=== PATIENT | male | born 1945 | race Caucasian/White ===

== ENCOUNTER 2020-10-22 00:33 | Inpatient (IN) | payer OTHER ==
[2020-10-22] MEDS ORDERED: DEXAMETHASONE INJ 10 MG/ML VIAL IV ONE (00:41)
[2020-10-22] MEDS ORDERED: AZITHROMYCIN IV 500 MG in SODIUM CHLORIDE 0.9% 250ML 250 ML IVPB ONE (00:42)
[2020-10-22] MEDS ORDERED: REMDESIVIR 200 MG in SODIUM CHLORIDE 0.9% 250ML 250 ML IVPB ONE (00:42)
--- NOTE | 2020-10-22 01:21 | RAD ---
EXAM: XR Chest, 1 View CLINICAL HISTORY: The patient is 75 years old and is Male; COVID, HYPOXIA TECHNIQUE: Frontal view of the chest. COMPARISON: No relevant prior studies available. FINDINGS: Lungs: Elevation of the left hemidiaphragm with a low lung volume. Patchy airspace opacities in the mid to lower right lung. Diffuse interstitial opacities suggestive of interstitial edema. Pleural space: Unremarkable. No pneumothorax. Heart: Unremarkable. Mediastinum: Unremarkable. Bones/joints: Unremarkable. IMPRESSION: 1. Elevation of the left hemidiaphragm with a low lung volume. 2. Patchy airspace opacities in the mid to lower right lung. 3. Diffuse interstitial opacities suggestive of interstitial edema. Electronically signed by: Lane Castle MD 10/22/2020 1:20 AM [facility] [[email or web address]]
[2020-10-22] MEDS ORDERED: cefTRIAXone SODIUM 1 GM in SODIUM CHL 0.9% 50ML MIN-BAG+ 50 ML IVPB ONE (01:35)
[2020-10-22] MEDS ORDERED: IPRATROPIUM/ALBUTEROL 3 ML VIAL NEB ONE (01:35)
[2020-10-22] MEDS ORDERED: ENOXAPARIN SODIUM 40 MG/0.4 ML SYG SUBCU ONE (01:39)
--- NOTE | 2020-10-22 01:44 | ED.PDOC ---
History of Present Illness - General Chief Complaint: Respiratory Problem Stated Complaint: SOB since today, COVID + Time Seen by Provider: 10/22/20 00:40 Source: patient Exam Limitations: no limitations - History of Present Illness Initial Comments: The patient is a 75-year-old male presented emergency room secondary to coronavirus pneumonia with worsening shortness of breath. The patient was diagnosed with coronavirus 4 days ago. He was started on azithromycin and steroids at that time. He reports of the last 24 hours he has become more short of breath. He does have a significant history of congestive heart failure and COPD. He does do frequent breathing treatments at home. Questionable fevers. No real sore throat and minimal runny nose. Minimal myalgias. I am told by his primary care doctor that he did receive a dose of the coronavirus vaccine. Apparently no monoclonal antibody however. The patient has been monitoring his oxygen levels at home with a pulse oximeter and had been getting numbers in the upper 80s. He reports his normal oxygen levels are between 91 and 95%. Timing/Duration: other - Around 5 days Severity: moderate Improving Factors: nothing Worsening Factors: nothing Associated Symptoms: cough, loss of appetite, malaise, shortness of breath Allergies/Adverse Reactions: Allergies Penicillins Allergy (Verified 10/22/20 01:08) Review of Systems - Review of Systems Constitutional: States: malaise EENTM: States: no symptoms reported Respiratory: States: cough, short of breath, wheezing Cardiology: States: no symptoms reported Gastrointestinal/Abdominal: States: no symptoms reported Genitourinary: States: no symptoms reported Musculoskeletal: States: no symptoms reported Skin: States: no symptoms reported Neurological: States: no symptoms reported Endocrine: States: no symptoms reported All other Systems: No Change from Baseline Past Medical History (General) - Patient Medical History Hx Seizures: No Hx Stroke: No Hx Dementia: No Hx Asthma: Yes Hx of COPD: Yes - 40% lung function Hx Cardiac Disorders: No Hx Congestive Heart Failure: Yes Hx Pacemaker: No Hx Hypertension: No Hx Thyroid Disease: No Hx Diabetes: No Hx Gastroesophageal Reflux: No Hx Renal Disease: No Hx Cancer: No Hx of HIV: No Hx Hepatitis C: No Hx MRSA: No Surgical History: cholecystectomy - Vaccination History Hx Influenza Vaccination: Yes Immunizations Comment: COVID vaccine 1st dose on Oct.08 - Social History Hx Alcohol Use: Yes - occasional Family Medical History - Family History Mother Family History: Unknown Physical Exam - Physical Exam General Appearance: Alert, Frail, Ill Appearing Eye Exam: bilateral normal Ears, Nose, Throat: hearing grossly normal, normal pharynx Neck: non-tender, supple Respiratory: accessory muscle use, rales, rhonchi, wheezing Cardiovascular/Chest: normal peripheral pulses, regular rate, rhythm - Borderline tachycardic, no edema Peripheral Pulses: radial,right: 2+, radial,left: 2+ Gastrointestinal/Abdominal: non tender, soft Rectal Exam: deferred Back Exam: no CVA tenderness, no vertebral tenderness Extremity: non-tender, normal inspection, no pedal edema, normal capillary refill Neurologic: rn perinatal II-XII nml as tested, alert, normal mood/affect, oriented x 3 Skin Exam: normal color Comments: Vital Signs - 8 hr 10/22/20 10/22/20 10/22/20 00:35 00:37 01:34 Temperature 98.1 F Pulse Rate [ 110 H 103 H monitor] Respiratory 24 24 18 Rate Blood Pressure 148/90 130/89 [Right Arm] O2 Sat by Pulse 85 L 94 L Oximetry Progress - Progress Progress: 10/22/20 01:46 The patient is a 75-year-old male with coronavirus pneumonia on top of his COPD. The patient is hypoxic and does require supplemental oxygen. He has been started on Rocephin, azithromycin, remdesivir, dexamethasone, DuoNeb's and is receiving prophylactic dose Lovenox. He will be admitted for continued care. Mortality is not insignificant with his background medical problems. america james 7 - Results/Orders Results/Orders: Chest x-ray shows scattered interstitial opacities. EKG shows sinus tachycardia 106 bpm. Normal axis. Normal QT interval. No ST segment or T wave changes indicative of acute ischemia Laboratory Tests 10/22/20 10/22/20 10/22/20 00:48 00:48 00:48 WBC 10.8 RBC 4.47 L Hgb 13.7 L Hct 39.7 L MCV 88.8 MCH 30.6 MCHC 34.4 RDW 12.6 Plt Count 234 MPV 7.1 L Absolute Neuts (auto) 10.00 H Absolute Lymphs (auto) 0.20 L Absolute Monos (auto) 0.60 Absolute Eos (auto) 0.00 Absolute Basos (auto) 0.00 Neutrophils % 92.4 H Lymphocytes % 1.7 L Monocytes % 5.9 Eosinophils % 0.0 L Basophils % 0.0 PT 9.4 INR < 1.00 PTT (SP) 23.4 D-Dimer, Quantitative 576.0 H Sodium 135 Potassium 3.5 L Chloride 101 Carbon Dioxide 25 Anion Gap 12.5 BUN 23 H Creatinine 0.74 BUN/Creatinine Ratio 31.1 H Random Glucose 138 H Serum Osmolality 276.0 Lactic Acid Calcium 8.6 Magnesium 1.9 Total Bilirubin 0.7 AST 33 ALT 44 Alkaline Phosphatase 42 LD Total 164 Creatine Kinase 40 CK-MB (CK-2) 1.5 CK-MB (CK-2) % Not Reportable Troponin I < 0.02 C-Reactive Protein 5.9 H B-Natriuretic Peptide 36.1 Serum Total Protein 6.8 Albumin 3.4 Globulin 3.4 Albumin/Globulin Ratio 1.0 L 10/22/20 00:48 WBC RBC Hgb Hct MCV MCH MCHC RDW Plt Count MPV Absolute Neuts (auto) Absolute Lymphs (auto) Absolute Monos (auto) Absolute Eos (auto) Absolute Basos (auto) Neutrophils % Lymphocytes % Monocytes % Eosinophils % Basophils % PT INR PTT (SP) D-Dimer, Quantitative Sodium Potassium Chloride Carbon Dioxide Anion Gap BUN Creatinine BUN/Creatinine Ratio Random Glucose Serum Osmolality Lactic Acid 2.5 H* Calcium Magnesium Total Bilirubin AST ALT Alkaline Phosphatase LD Total Creatine Kinase CK-MB (CK-2) CK-MB (CK-2) % Troponin I C-Reactive Protein B-Natriuretic Peptide Serum Total Protein Albumin Globulin Albumin/Globulin Ratio Departure - Departure Clinical Impression: Pneumonia due to COVID-19 virus, COPD with exacerbation Disposition: Admit Patient Departure Forms: ED Discharge - Pt. Copy, Patient Portal Self Enrollment Referrals: Robby James MD [Primary Care Provider] - 1-2 Weeks Decision To Admit - Decistion To Admit Decision to Admit Reason: Medical Nature Decision to Admit Date: 10/22/20 Decision to Admit Time: 01:47
--- NOTE | 2020-10-22 02:09 | HP ---
SUPERVISING PHYSICIAN: Alirio Lloyd M.D. CHIEF COMPLAINT: Shortness of breath, positive COVID. HISTORY OF PRESENT ILLNESS: Mr. Solis is a 75 year-old male patient that presented to the Emergency Room last night with a history of COVID pneumonia with some worsening shortness of breath. He was diagnosed previously 4 days ago with COVID pneumonia and was started on treatment with azithromycin and steroids. He does have a significant history of chronic obstructive pulmonary disease and congestive heart failure, and takes frequent breathing treatments at home. He had actually gotten a single dose of the coronavirus vaccine. He had been watching his O2 levels at home with a pulse oximetry noted that his SpO2 was reading in the mid 80s and in the last 24 hours were the last 2 to 3 days prior he had been reading in the mid 90s. His initial laboratory studies showed a white count of 10,800 with hemoglobin 13.7. His differential had a left shift. D-dimer was slightly elevated at 576. Chemistry showed a lactic acid of 2.5. Troponin was less than 0.2, BNP of 36. Initial vital signs in the Emergency Room showed that he was satting 85% on room air and he was not O2 dependent, and he was showing respirations of 24 with a heart rate initially of 110, but afebrile at 98.1. Blood pressure was 148/90. He was given breathing treatments and started on treatment for COVID pneumonia after chest x-ray showed patchy airspace opacities in the mid to lower right lung with diffuse interstitial opacities with some suggested interstitial edema. He is now going to be admitted for further treatment of COVID pneumonia. He was admitted in stable condition. PAST MEDICAL HISTORY: 1. Chronic obstructive pulmonary disease. 2. Congestive heart failure without current echocardiogram available at time of admission. PAST SURGICAL HISTORY: 1. Gallbladder. 2. Bilateral cataracts. HOME MEDICATIONS: 1. Flomax 0.4 mg. 2. Losartan 25 mg daily. 3. Finasteride 5 mg daily. 4. Pulmicort 0.5 mg nebulizers b.i.d. 5. Lipitor 80 mg at bedtime. 6. Proventil nebs 2.5 mg t.i.d. as needed. 7. Albuterol inhalers with a handheld inhaler 100 mcg q.i.d. 8. Spiriva handheld inhaler daily. ALLERGIES: PENICILLINS. FAMILY HISTORY: Noncontributory to current admission. SOCIAL HISTORY: The patient is a retired [employer] [address] [place]. He lives in [place], [place]. He is . He did smoke but quit at age 36. He has no history of alcohol or illicit drug use. REVIEW OF SYSTEMS: CONSTITUTIONAL: Just reported some general malaise. No fever or chills. HEENT: Denies any headaches vision changes, sore throat, nasal congestion or ear ache. RESPIRATORY: Increasing cough with shortness of breath and wheezing. CARDIOVASCULAR: Denies any chest pains, palpitations, syncopal episodes. GASTROINTESTINAL: Denies any nausea, vomiting, diarrhea, constipation or abdominal pain. GENITOURINARY: Denies any dysuria, hematuria, polyuria. MUSCULOSKELETAL: Denies any arthralgias or joint swelling. SKIN: Denies any unexplained lesions, rashes, moles or unexplained changes. NEUROLOGIC: Denies any ataxia, seizures, vision changes, syncopal episodes, headaches or other focal motor deficits. HEMATOLOGIC: Denies any unexplained bleeding, bruising or transfusion reactions. PHYSICAL EXAMINATION: VITAL SIGNS: Initially in the Emergency Room, temperature 98.1, pulse 110, blood pressure 148/90, respirations 24 showing 85% saturation on room air. After breathing treatment on admission, he improved on 3 liters nasal cannula up to 97%. GENERAL: The patient looks to be resting comfortably. He is not showing any obvious signs of distress. He is alert. He does look ill. He does have some pursed lip breathing at times which he says is sometimes his normal, especially when he is lying on his back. HEENT: Tympanic membranes clear bilaterally. Oropharynx is pink, moist without any lesions. NECK: Supple, nontender with full range of motion. No jugular venous distention. CHEST: Lung sounds are a little diminished towards the bases with some pursed lip breathing and some notable inspiratory/expiratory wheezing with increased rhonchi. No obvious rales. HEART: Regular rate and rhythm. Showing mildly tachycardic on the bedside monitor. EXTREMITIES: Without any clubbing, cyanosis or edema. ABDOMEN: Non-tender, soft with positive bowel sounds. BACK: Without any CVA or vertebral tenderness. RECTAL: Exam was deferred. NEUROLOGIC: Cranial nerves II-XII are grossly intact. He is alert and oriented times three. SKIN: Warm, pink and dry. LABORATORY: White count 10,800, hemoglobin 13.7, hematocrit 39.7, platelet count 234,000. Differential does show a left shift. Coagulation studies showed normal PT and PTT. D-dimer is slightly elevated at 536. Chemistries are showing potassium 3.5, otherwise other electrolytes were normal. Carbon dioxide was 25, anion gap was normal. Creatinine was 0.74, lactic acid was slightly elevated at 2.5, calcium and magnesium are normal. Liver functions are all within normal limits. Troponin less than 0.02. BNP was normal at 36.1, TSH was low at 0.2. MICROBIOLOGY: Blood cultures are pending. Influenza A and B by PCR was negative. He did test positive for COVID 4 days previously. RADIOLOGY: Chest x-ray per radiology interpretation showed an elevated left diaphragm with low lung volume with patchy airspace opacities in the mid to lower right lung with diffuse interstitial opacities suggesting interstitial edema. ASSESSMENT: 1. COVID pneumonia. 2. Acute exacerbation of chronic obstructive pulmonary disease secondary to #1. 3. Sepsis secondary to #1 with the patient showing a lactic acidosis, left shift, tachycardic. 4. Hypoxic respiratory failure secondary to #1. 5. Hypertension. 6. Congestive heart failure with no signs of exacerbation and no current echocardiogram available at time of admission. PLAN: Mr. Solis is going to be admitted for initiation of treatment of COVID pneumonia. He will be started on azithromycin and Rocephin. Given her advanced COPD, he will be in a negative pressure room. Will go ahead and start him on breathing treatments to continue with Albuterol and Pulmicort. He is on Decadron, Remdesivir, Protonix, Align. Will resume his home medications once those have been updated and verified. Will follow his labs per protocol. Will continue with aggressive pulmonary hygiene in efforts to titrate his oxygen down as tolerated. I will anticipate his length of stay to be at least 2 to 3 days until we can transition him to outpatient management. [facility][id number] [facility]
[2020-10-22] MEDS ORDERED: ONDANSETRON INJ 4 MG/2 ML VIAL IV PRN (05:25)
[2020-10-22] MEDS ORDERED: SODIUM CHLORIDE 0.9% (FLUSH) 10 ML SYG IV PRN (05:25)
[2020-10-22] MEDS: IV SET AND CAP CHANGE INJ INJ SCH (06:19)
[2020-10-22] MEDS ORDERED: PANTOPRAZOLE SODIUM IV 40 MG VIAL IV SCH (06:30)
[2020-10-22] MEDS: BIFIDOBACTERIUM INFANTIS 4 MG CAP PO SCH (07:44)
[2020-10-22] MEDS ORDERED: PROMETHAZINE W/CODEINE SYR 6.25 MG/10 MG/5 ML UD PO PRN (07:47)
[2020-10-22] MEDS ORDERED: BUDESONIDE NEBS 0.5 MG/2 ML INH NEB SCH (09:00)
[2020-10-22] MEDS: IPRATROPIUM/ALBUTEROL 3 ML VIAL INH SCH ×4 (09:35→21:23)
[2020-10-22] MEDS ORDERED: cefTRIAXone SODIUM 1 GM VIAL ONE (15:36)
[2020-10-22] MEDS ORDERED: SODIUM CHL 0.9% 50ML MIN-BAG+ 50 ML IVPB ONE (15:37)
[2020-10-22] MEDS: cefTRIAXone SODIUM 1 GM in SODIUM CHL 0.9% 50ML MIN-BAG+ 50 ML IVPB SCH (17:02)
[2020-10-22] MEDS: ALBUTEROL SULFATE 2.5 MG/3 ML VIAL NEB PRN (18:08)
[2020-10-22] MEDS: ATORVASTATIN 20 MG TAB PO SCH (20:37)
[2020-10-22] MEDS: LOSARTAN POTASSIUM 25 MG TAB PO SCH (20:38)
[2020-10-22] MEDS: TAMSULOSIN 0.4 MG CAP PO SCH (20:38)
[2020-10-22] MEDS: FINASTERIDE 5 MG TAB PO SCH (20:38)
[2020-10-22] MEDS: ENOXAPARIN SODIUM 40 MG/0.4 ML SYG SUBCU SCH (20:38)
[2020-10-22] MEDS: REMDESIVIR 100 MG in SODIUM CHLORIDE 0.9% 250ML 250 ML IVPB SCH (20:39)
[2020-10-22] MEDS: BUDESONIDE NEBS 0.5 MG/2 ML INH NEB SCH (21:23)
[2020-10-23] MEDS ORDERED: PANTOPRAZOLE SODIUM IV 40 MG VIAL ONE (03:55)
[2020-10-23] MEDS ORDERED: PANTOPRAZOLE SODIUM TAB 40 MG PO ONE (04:48)
[2020-10-23] MEDS: PANTOPRAZOLE SODIUM TAB 40 MG PO SCH (06:19)
--- NOTE | 2020-10-23 07:22 | RAD ---
EXAM: Chest 1 View 10/23/2020 at 6:59 AM HISTORY: copd ex ; COVID PNA COMPARISON: Chest 1 View AP 10/22/2020 TECHNIQUE: Chest 1 View AP FINDINGS: Patient's neck appears bilateral apices. Cardiac silhouette partially obscured by surrounding opacities. Heart size appears enlarged and may be partly due to portable AP technique. Marked large opacity of left mid/lower lung/chest again seen. Marked right mid/lower lung field dense opacity. No pneumothorax is grossly visualized. Diffuse decreased bone density. IMPRESSION: No significant change. 1. Cardiac silhouette partially obscured by surrounding opacities. Heart size appears enlarged and may be partly due to portable AP technique. 2. Marked large opacity of left mid/lower lung/chest again seen. This is likely at least partly due to marked left hemidiaphragm elevation. This may also represent underlying left atelectasis, consolidation, and/or pleural effusion. 3. Moderate dense right mid/lower lung field opacity. Causes include pulmonary edema, infection, scar/fibrosis. If clinically indicated, then CT chest may provide more information on the bilateral lungs/chest opacities. No old exam is available prior to 10/22/2020 at 12:52 AM. Electronically signed by: Billy Genao MD 10/23/2020 7:20 AM PRACTICING MD ANESTHESIOLOGIST
[2020-10-23] MEDS: DEXAMETHASONE INJ 10 MG/ML VIAL IV SCH (08:50)
[2020-10-23] MEDS: BIFIDOBACTERIUM INFANTIS 4 MG CAP PO SCH (08:51)
[2020-10-23] MEDS: IPRATROPIUM/ALBUTEROL 3 ML VIAL INH SCH ×4 (09:15→21:11)
[2020-10-23] MEDS: BUDESONIDE NEBS 0.5 MG/2 ML INH NEB SCH ×2 (09:15→21:11)
[2020-10-23] MEDS ORDERED: BUDESONIDE NEBS 0.5 MG/2 ML INH NEB ONE (09:16)
--- NOTE | 2020-10-23 13:14 | CT ---
Study: CT angiography of the chest, pulmonary embolus protocol. Indication: worsening COVID PNA. elevated d-dimer Technique: Axial CT images were acquired through the chest after intravenous administration of contrast utilizing the CT angiography, pulmonary embolus protocol. Computer-generated 3D reconstructions (MIPS) were performed and reviewed. This exam was performed according to our departmental dose-optimization program, which includes automated exposure control, adjustment of the mA and/or kV according to patient size and/or use of iterative reconstruction technique. Comparison: None Findings: Scattered atherosclerosis. Mild cardiomegaly with a tiny pericardial effusion. Marked respiratory motion artifact obscures the pulmonary arteries. No pulmonary embolus identified in the main pulmonary arteries. Distal evaluation cannot be performed. Significant elevation left hemidiaphragm with left basilar atelectasis versus scarring. Mild to moderate patchy groundglass opacities at the peripheral aspects of the bilateral lungs concerning for pneumonia. No pleural effusion or pneumothorax. Degenerative changes of the spine noted. Several hepatic cysts and bilateral renal cyst partially visualized. Impression: Markedly motion degraded examination making evaluation of the pulmonary arteries significantly limited. No pulmonary embolus within the main pulmonary arteries. More distal evaluation cannot be performed. Consider a follow-up when the patient can tolerate. Patchy groundglass opacities throughout the bilateral lungs concerning for pneumonia. COVID-19 could give this appearance. Marked elevation left hemidiaphragm. Additional findings as above. Electronically signed by: Raffi Levi MD 10/23/2020 1:12 PM [employer]CHOOL TEACHER'S ASSISTANT
[2020-10-23] MEDS: cefTRIAXone SODIUM 1 GM in SODIUM CHL 0.9% 50ML MIN-BAG+ 50 ML IVPB SCH (17:24)
[2020-10-23] MEDS: AZITHROMYCIN IV 500 MG in SODIUM CHLORIDE 0.9% 250ML 250 ML IVPB SCH (18:22)
[2020-10-23] MEDS: ENOXAPARIN SODIUM 40 MG/0.4 ML SYG SUBCU SCH (20:42)
[2020-10-23] MEDS: FINASTERIDE 5 MG TAB PO SCH (20:42)
[2020-10-23] MEDS: ATORVASTATIN 20 MG TAB PO SCH (20:42)
[2020-10-23] MEDS: LOSARTAN POTASSIUM 25 MG TAB PO SCH (20:42)
[2020-10-23] MEDS: TAMSULOSIN 0.4 MG CAP PO SCH (20:42)
[2020-10-23] MEDS: REMDESIVIR 100 MG in SODIUM CHLORIDE 0.9% 250ML 250 ML IVPB SCH (20:43)
--- NOTE | 2020-10-23 21:49 | PN ---
SUPERVISING PHYSICIAN: Alirio Lloyd M.D. DATE: 10/23/20 SUBJECTIVE: The patient is still increasing his need for oxygen, but he feels that he is not quite as short of breath as yesterday despite the increasing need for oxygen via nasal cannula. He actually looks like he feels pretty good. He has been afebrile. No chest pains. No nausea or vomiting. OBJECTIVE: VITAL SIGNS: Temperature 98.6, pulse 99, blood pressure 98/53, respirations 18, satting 91 to 94% on 10 liters nasal cannula at high flow. GENERAL: The patient looks to be resting comfortably. He is not showing any pursed lip breathing today, lying on his right side. CHEST: Lung sounds are fairly clear, just diminished towards the bases bilaterally. HEART: Regular rate and rhythm. ABDOMEN: Soft, non-tender. Positive bowel sounds. EXTREMITIES: No edema. NEUROLOGIC: He is alert and oriented times three. LABORATORY: White count 7,700, hemoglobin 11.8, hematocrit 35.0, platelet count 210,000. Differential does show a left shift. Coagulation studies are showing D-dimer is at 424. Chemistries showing sodium 138, potassium 3.4, otherwise other electrolytes were normal. Creatinine is 0.77, lactic acid normalized to 1.3. Liver functions are showing all within normal limits. MICROBIOLOGY: Blood cultures are negative at 24 [address]. RADIOLOGY: CT thoracic scan showed markedly motion degraded examination making evaluation of the pulmonary arteries significantly limited but no pulmonary embolus within the main artery system was noted. Patchy ground glass opacities throughout the bilateral lungs concerning for pneumonia at noted. COVID-19 could give this appearance. Marked elevation of the left diaphragm. ASSESSMENT: 1. COVID pneumonia. 2. Acute exacerbation of chronic obstructive pulmonary disease secondary to #1. 3. Sepsis secondary to #1 with the patient showing a lactic acidosis, left shift, tachycardic. 4. Hypoxic respiratory failure secondary to #1. 5. Hypertension. 6. Congestive heart failure with no signs of exacerbation and no current echocardiogram available at time of admission. PLAN: Will continue with current plan of care for COVID pneumonia. Will work to titrate his oxygen down as he is able to show improvement. Until then he remains on azithromycin, Rocephin, Remdesivir and Decadron, Pulmicort inhaled treatment along with DuoNeb. Will follow his labs as per protocol. Until we can transition to outpatient management will continue to monitor and treat as needed. #[id number] [facility]
[2020-10-24] MEDS: PANTOPRAZOLE SODIUM TAB 40 MG PO SCH (06:09)
--- NOTE | 2020-10-24 09:04 | RAD ---
EXAM DESCRIPTION: Chest,1 View CLINICAL HISTORY: 75 years Male, copd ex ; COVID PNA COMPARISON: Yesterday Findings: One view(s)/radiograph(s) Cardiac silhouette obscured. No pulmonary vascular congestion. No pneumothorax. Large left pleural effusion with adjacent airspace disease. Similar patchy multifocal bilateral airspace disease. Elevated left diaphragm. No acute osseous abnormality. IMPRESSION: Large left pleural effusion with adjacent airspace disease. Similar patchy multifocal bilateral airspace disease. Electronically signed by: Mac Palmer MD 10/24/2020 9:02 AM [facility]
[2020-10-24] MEDS: IPRATROPIUM/ALBUTEROL 3 ML VIAL INH SCH ×4 (09:10→21:27)
[2020-10-24] MEDS: BUDESONIDE NEBS 0.5 MG/2 ML INH NEB SCH ×2 (09:10→21:28)
[2020-10-24] MEDS: BIFIDOBACTERIUM INFANTIS 4 MG CAP PO SCH (09:12)
[2020-10-24] MEDS: DEXAMETHASONE INJ 10 MG/ML VIAL IV SCH (09:20)
[2020-10-24] MEDS: guaiFENesin ER TAB 600 MG TAB PO SCH ×2 (13:27→20:24)
[2020-10-24] MEDS: AZITHROMYCIN IV 500 MG in SODIUM CHLORIDE 0.9% 250ML 250 ML IVPB SCH (17:32)
[2020-10-24] MEDS: cefTRIAXone SODIUM 1 GM in SODIUM CHL 0.9% 50ML MIN-BAG+ 50 ML IVPB SCH (17:32)
--- NOTE | 2020-10-24 18:00 | PN ---
SUPERVISING PHYSICIAN: Alirio Lloyd M.D. DATE: 10/24/20 SUBJECTIVE: The patient is sitting up on the side of the bed. He continues complaints of shortness of breath. It was reported overnight by nursing that the patient took his own Methylprednisolone and had refused some of his medications. The patient and I discussed at length that he could not take his own medication and that all medications had to be able to be verified by the staff. We discussed the need for Mucinex as well as why we were using Decadron versus his Methylprednisolone and he voiced understanding. His O2 saturations were low the previous night and he has had some struggle. He felt that it was mostly his asthma acting up, but we discussed COVID and some of the current presentations. I also discussed with him that he may need to be placed on BiPAP if his oxygen requirements increased. OBJECTIVE: VITAL SIGNS: Temperature 96, heart rate 106, blood pressure 123/83, respiratory rate 20. It has been as high as 28, O2 saturation 91% on 15 liters high flow oxygen. RESPIRATORY: Diminished at the bases with a few scattered rhonchi and a few expiratory wheezes. CARDIAC: Regular rate and rhythm. At times he is tachycardic. NEUROLOGIC: He is awake, alert and oriented times three. LABORATORY: WBC is 7.1 with hemoglobin 11.2, hematocrit 34.6. He has a left shift on his differential. D-dimer is 398, fibrinogen 493. Electrolytes are within normal limits with the exception of his calcium is 8. Alkaline phosphatase 36, C reactive protein 6.3. Preliminary blood cultures show no growth after 48 hours. Chest x-ray shows large left pleural effusion with adjacent airspace disease. Similar patchy multifocal airspace disease. All other labs and films have been reviewed via the EMR. ASSESSMENT: 1. COVID-19 pneumonia. 2. Acute exacerbation of chronic obstructive pulmonary disease secondary to #1. 3. Sepsis secondary to #1 with the patient showing a lactic acidosis, left shift, tachycardic. 4. Hypoxic respiratory failure secondary to #1. 5. History of asthma with exacerbation secondary to #1. 6. Hypertension. 7. Congestive heart failure with no signs or symptoms of exacerbation, awaiting echocardiogram results. PLAN: We will continue present supportive care, including following COVID-19 guidelines. I have ordered Mucinex. The patient is aware that he may need BiPAP with his increasing oxygen demand. He will continue with the COVID-19 medications as ordered and aggressive pulmonary hygiene. #[id number] [facility]
[2020-10-24] MEDS: FINASTERIDE 5 MG TAB PO SCH (20:24)
[2020-10-24] MEDS: ATORVASTATIN 20 MG TAB PO SCH (20:24)
[2020-10-24] MEDS: LOSARTAN POTASSIUM 25 MG TAB PO SCH (20:24)
[2020-10-24] MEDS: ENOXAPARIN SODIUM 40 MG/0.4 ML SYG SUBCU SCH (20:25)
[2020-10-24] MEDS: TAMSULOSIN 0.4 MG CAP PO SCH (20:25)
[2020-10-24] MEDS: REMDESIVIR 100 MG in SODIUM CHLORIDE 0.9% 250ML 250 ML IVPB SCH (20:26)
[2020-10-25] MEDS: ALBUTEROL SULFATE 2.5 MG/3 ML VIAL NEB PRN ×3 (02:11→15:44)
[2020-10-25] MEDS: IV SET AND CAP CHANGE INJ INJ SCH (06:01)
[2020-10-25] MEDS: PANTOPRAZOLE SODIUM TAB 40 MG PO SCH (06:01)
--- NOTE | 2020-10-25 07:41 | RAD ---
EXAM DESCRIPTION: Chest,1 View CLINICAL HISTORY: copd ex ; COVID PNA COMPARISON: Chest x-ray October 24, 2020 FINDINGS: Frontal single view of the chest. Chronically elevated left hemidiaphragm dating back to 2013 consistent with left diaphragmatic paralysis/dysfunction. Multifocal bilateral groundglass opacities: Seen into consolidations commonly associated with atypical/viral pneumonia. Heart and mediastinum appear stable in appearance. No pneumothorax is demonstrated. No acute bony pathology. IMPRESSION: Stable chest. Electronically signed by: Rene Linares MD 10/25/2020 7:39 AM ELECTRICAL TECHNICIAN
[2020-10-25] MEDS: BIFIDOBACTERIUM INFANTIS 4 MG CAP PO SCH (08:51)
[2020-10-25] MEDS: DEXAMETHASONE INJ 10 MG/ML VIAL IV SCH (08:53)
[2020-10-25] MEDS: guaiFENesin ER TAB 600 MG TAB PO SCH ×2 (08:53→20:34)
[2020-10-25] MEDS: BUDESONIDE NEBS 0.5 MG/2 ML INH NEB SCH ×2 (09:00→20:50)
[2020-10-25] MEDS: IPRATROPIUM/ALBUTEROL 3 ML VIAL INH SCH ×2 (09:00→13:00)
[2020-10-25] MEDS ORDERED: TIOTROPIUM INHALER INH SCH (09:00)
[2020-10-25] MEDS ORDERED: IPRATROPIUM/ALBUTEROL 3 ML VIAL INH SCH (16:00)
[2020-10-25] MEDS: cefTRIAXone SODIUM 1 GM in SODIUM CHL 0.9% 50ML MIN-BAG+ 50 ML IVPB SCH (17:01)
[2020-10-25] MEDS: LEVALBUTEROL NEBS 1.25 MG/3 ML VIAL NEB PRN (17:35)
[2020-10-25] MEDS: AZITHROMYCIN IV 500 MG in SODIUM CHLORIDE 0.9% 250ML 250 ML IVPB SCH (17:40)
--- NOTE | 2020-10-25 18:53 | PN ---
SUPERVISING PHYSICIAN: Alirio Lloyd M.D. DATE: 10/25/20 SUBJECTIVE: The patient is sitting on the side of the bed. He says he usually sits in the tripod position due to his breathing. He has had quite a bit of coughing, but it is his normal and he is starting to cough up some phlegm. He endorses that he feels much better than he has been, although he does still quickly get short of breath with exertion. We had a long discussion about increased oxygen needs. The patient is fairly adamant he does not want to be on the BiPAP, but he would be, if it came to that point. OBJECTIVE: VITAL SIGNS: Temperature 97.7, heart rate 111, blood pressure 147/94, respiratory rate 18 to 22, O2 saturation 93% on 15 liters high follow nasal cannula. RESPIRATORY: Diminished breath sounds throughout with a few scattered rhonchi. He is tachypneic with exertion, especially with speaking. CARDIAC: Regular rate and rhythm. At times he is slightly tachycardic. NEUROLOGIC: He is awake, alert and oriented times three. LABORATORY: WBCs were 9,100 with hemoglobin 11.7, hematocrit 34.4. He has a left shift on his differential. D-dimer is 398, fibrinogen 498. Electrolytes are within normal limits with the exception of his calcium is low at 8.2. Preliminary blood cultures show no growth after 3 days. Chest x-ray shows stable chest. All other labs and films have been reviewed via the EMR. ASSESSMENT: 1. COVID-19 pneumonia. 2. Acute exacerbation of chronic obstructive pulmonary disease secondary to #1. 3. Sepsis secondary to #1 with the patient showing a lactic acidosis, left shift and tachycardic. 4. Hypoxic respiratory failure secondary to #1. 5. History of asthma with exacerbation secondary to #1. 6. Hypertension. 7. Congestive heart failure with no signs or symptoms of exacerbation, awaiting echocardiogram results. PLAN: We will continue present supportive care, including the COVID-19 guidelines. Will continue with aggressive pulmonary hygiene. The patient is aware that he may need BiPAP at some point, but we will monitor him closely. I have ordered routine COVID labs for in the morning. Will continue to monitor him closely and follow as needed. [facility][id number] [facility]
[2020-10-25] MEDS ORDERED: REMDESIVIR IV 100 MG VIAL ONE (19:21)
[2020-10-25] MEDS ORDERED: SODIUM CHLORIDE 0.9% 250ML 250 ML ONE (19:21)
[2020-10-25] MEDS: PROMETHAZINE W/CODEINE SYR 6.25 MG/10 MG/5 ML UD PO PRN (20:34)
[2020-10-25] MEDS: LOSARTAN POTASSIUM 25 MG TAB PO SCH (20:34)
[2020-10-25] MEDS: FINASTERIDE 5 MG TAB PO SCH (20:35)
[2020-10-25] MEDS: ATORVASTATIN 20 MG TAB PO SCH (20:35)
[2020-10-25] MEDS: ENOXAPARIN SODIUM 40 MG/0.4 ML SYG SUBCU SCH (20:35)
[2020-10-25] MEDS: TAMSULOSIN 0.4 MG CAP PO SCH (20:35)
[2020-10-25] MEDS: REMDESIVIR 100 MG in SODIUM CHLORIDE 0.9% 250ML 250 ML IVPB SCH (20:37)
[2020-10-25] MEDS: LEVALBUTEROL NEBS 1.25 MG/3 ML VIAL NEB SCH (20:50)
[2020-10-25] MEDS: IPRATROPIUM BROMIDE NEBS 0.5 MG/2.5 ML VIAL NEB SCH (20:50)
[2020-10-25] MEDS: TIOTROPIUM INHALER INH SCH (21:25)
[2020-10-26] MEDS: LEVALBUTEROL NEBS 1.25 MG/3 ML VIAL NEB SCH ×6 (00:10→20:30)
[2020-10-26] MEDS: LEVALBUTEROL NEBS 1.25 MG/3 ML VIAL NEB PRN ×2 (02:30→18:30)
[2020-10-26] MEDS: PROMETHAZINE W/CODEINE SYR 6.25 MG/10 MG/5 ML UD PO PRN (05:40)
[2020-10-26] MEDS: PANTOPRAZOLE SODIUM TAB 40 MG PO SCH (06:12)
[2020-10-26] MEDS: BUDESONIDE NEBS 0.5 MG/2 ML INH NEB SCH ×2 (07:23→20:30)
[2020-10-26] MEDS: IPRATROPIUM BROMIDE NEBS 0.5 MG/2.5 ML VIAL NEB SCH ×2 (07:23→20:30)
[2020-10-26] MEDS: DEXAMETHASONE INJ 10 MG/ML VIAL IV SCH (08:47)
[2020-10-26] MEDS: BIFIDOBACTERIUM INFANTIS 4 MG CAP PO SCH (08:48)
[2020-10-26] MEDS: guaiFENesin ER TAB 600 MG TAB PO SCH ×2 (08:48→20:15)
--- NOTE | 2020-10-26 15:09 | PN ---
SUPERVISING PHYSICIAN: Alirio Lloyd M.D. DATE: 10/26/20 SUBJECTIVE: The patient is still having a lot of coughing. He is still tripoding at times. At time of exam he was in the restroom and actually able to do his daily activities including brushing his hair, brushing his teeth and without any significant distress. Although, he was obviously short of breath. OBJECTIVE: VITAL SIGNS: Temperature 97.9, pulse 116 to 128, blood pressure 118/67, respiratory rate 22 o 24. He was shoving anywhere from 88% saturation up to 94% on 15 liters high flow. GENERAL: The patient looks tired and obviously significant but is actually talking in full sentences. HEART: Regular rate and rhythm. ABDOMEN: Soft, non-tender, positive bowel sounds. CHEST: A little diminished bilaterally but otherwise no rhonchi or wheezing noted. NEUROLOGIC: He is alert and oriented times three. LABORATORY: White count 10,400, hemoglobin 13.1, hematocrit 38.5, platelet count 330,000. Differential does show a left shift. Coagulation studies showed D-dimer at 610. Blood gas analysis showed pH of 7.43, PC02 low at 32 with bicarb of 24 with P02 of 60. Oxygen saturation 93% on 15 liters nasal cannula at high flow. Chemistries showing normal electrolytes. BUN elevated at 26, creatinine 0.68, calcium 8.3, magnesium 2.0. Liver functions all within normal limits. Troponin less than 0.02. C-reactive protein less than 2. RADIOLOGY: No repeated chest x-ray. Review of chest x-ray yesterday showed chest to be stable, still showing left hemidiaphragm elevation. No significant change chronically compared to 2014 with again, some multifocal groundglass opacities. ASSESSMENT: 1. COVID-19 pneumonia. 2. Acute exacerbation of chronic obstructive pulmonary disease secondary to #1. 3. Sepsis secondary to #1 with the patient showing a lactic acidosis, left shift and tachycardic. 4. Hypoxic respiratory failure secondary to #1. 5. History of asthma with exacerbation secondary to #1. 6. Hypertension. 7. Congestive heart failure with no signs or symptoms of exacerbation, awaiting echocardiogram results. PLAN: We will continue with current plan of care with aggressive pulmonary hygiene and antibiotics. We will still monitor his respiratory efforts. He remains on high flow. I do not know that he would be able to tolerate BiPAP but he seems to be slightly improving today. Will continue to do his lab and again, get a chest x-ray in the morning. He remains on azithromycin, Rocephin, Decadron, Lovenox, He has been changed to Atrovent with Xopenex. Until we can transition patient to outpatient management, which I do not anticipate will happen probably for at least 3 or 4 days, we will continue to monitor and treat as needed #[id number] [facility]
[2020-10-26] MEDS ORDERED: SODIUM CHLORIDE 0.65% NASAL SPRAY 45 ML BTTL ONE (15:43)
[2020-10-26] MEDS: AZITHROMYCIN IV 500 MG in SODIUM CHLORIDE 0.9% 250ML 250 ML IVPB SCH (17:02)
[2020-10-26] MEDS: cefTRIAXone SODIUM 1 GM in SODIUM CHL 0.9% 50ML MIN-BAG+ 50 ML IVPB SCH (17:03)
[2020-10-26] MEDS: LOSARTAN POTASSIUM 25 MG TAB PO SCH (20:15)
[2020-10-26] MEDS: ATORVASTATIN 20 MG TAB PO SCH (20:15)
[2020-10-26] MEDS: ACETAMINOPHEN 325 MG TAB PO PRN (20:15)
[2020-10-26] MEDS: FINASTERIDE 5 MG TAB PO SCH (20:15)
[2020-10-26] MEDS: TAMSULOSIN 0.4 MG CAP PO SCH (20:15)
[2020-10-26] MEDS: ENOXAPARIN SODIUM 40 MG/0.4 ML SYG SUBCU SCH (20:16)
[2020-10-26] MEDS: TIOTROPIUM INHALER INH SCH (20:30)
[2020-10-27] MEDS: LEVALBUTEROL NEBS 1.25 MG/3 ML VIAL NEB SCH ×6 (01:31→20:40)
[2020-10-27] MEDS: PANTOPRAZOLE SODIUM TAB 40 MG PO SCH (06:17)
--- NOTE | 2020-10-27 07:58 | RAD ---
: 1945. Technique: Portable AP upright chest x-ray. Comparison: October 25, 2020. Clinical history: covid. Heart size: Heart is severely enlarged. Aorta is tortuous. Lungs: There is severe elevation of the left diaphragm and left-sided volume loss redemonstrated. There is relative compensatory hyperexpansion on the right lung. Bilateral interstitial infiltrates consistent with pneumonitis. Pleura: No pleural effusion. No pneumothorax. Mediastinum and flaquito: Unremarkable. Skeletal: Unremarkable. Support tubings: None. Impression: 1. Cardiomegaly. 2. Left-sided volume loss. 3. Bilateral interstitial pneumonitis unchanged. Electronically signed by: Jacob Karimi MD 10/27/2020 7:57 AM [facility]
[2020-10-27] MEDS: DEXAMETHASONE INJ 10 MG/ML VIAL IV SCH (08:40)
[2020-10-27] MEDS: guaiFENesin ER TAB 600 MG TAB PO SCH ×2 (08:40→20:47)
[2020-10-27] MEDS: BIFIDOBACTERIUM INFANTIS 4 MG CAP PO SCH (08:40)
[2020-10-27] MEDS: BUDESONIDE NEBS 0.5 MG/2 ML INH NEB SCH ×2 (08:42→20:40)
[2020-10-27] MEDS: IPRATROPIUM BROMIDE NEBS 0.5 MG/2.5 ML VIAL NEB SCH ×2 (08:42→20:40)
[2020-10-27] MEDS: cefTRIAXone SODIUM 1 GM in SODIUM CHL 0.9% 50ML MIN-BAG+ 50 ML IVPB SCH (17:01)
--- NOTE | 2020-10-27 17:22 | PN ---
SUPERVISING PHYSICIAN: Alirio Lloyd M.D. DATE: 10/27/20 SUBJECTIVE: Mr. Solis seems to be doing much better today. He was started on Airvo high flow system which is actually at 50 liters, 92% FiO2. He seems to be tolerating this well and maintaining saturations at least around 94%. He is resting comfortably. He has no complaints of any chest pains, diarrhea, nausea or vomiting. OBJECTIVE: VITAL SIGNS: Temperature 98.8, pulse 99, blood pressure 125/75, respirations 20, satting 96% on high flow cannula. GENERAL: The patient looks tired and obviously significant but is actually talking in full sentences. HEART: Regular rate and rhythm. ABDOMEN: Soft, non-tender, positive bowel sounds. CHEST: A little diminished bilaterally but otherwise no rhonchi or wheezing noted. NEUROLOGIC: He is alert and oriented times three. LABORATORY STUDIES: White count was showing to be stable at 8,300, hemoglobin 11.7, hematocrit 34.3, platelet count 220,000. Differential does show a left shift. Coagulation studies now show his D-dimer is normal. Chemistries are showing normal electrolytes, creatinine 0.69 and C reactive protein is 2.8, magnesium 2.0. RADIOLOGY: Chest x-ray this morning per radiology interpretation shows cardiomegaly with left sided volume loss with bilateral interstitial pneumonitis, unchanged. ASSESSMENT: 1. COVID-19 pneumonia. 2. Acute exacerbation of chronic obstructive pulmonary disease secondary to #1. 3. Sepsis secondary to #1 with the patient showing a lactic acidosis, left shift and tachycardic. 4. Hypoxic respiratory failure secondary to #1. 5. History of asthma with exacerbation secondary to #1. 6. Hypertension. 7. Congestive heart failure with no signs or symptoms of exacerbation, awaiting echocardiogram results. PLAN: Will continue with current plan of care on the Airvo system high flow nasal cannula. He remains on Rocephin. He did finish a course of azithromycin. He remains also on Decadron and he is on Xopenex breathing treatments, and as well he did finish up his Remdesivir. Will continue to monitor and treat as needed until we can transition to outpatient management which hopefully will be within the next 1 to 2 days. [facility][id number] [facility]
[2020-10-27] MEDS: ENOXAPARIN SODIUM 40 MG/0.4 ML SYG SUBCU SCH (20:47)
[2020-10-27] MEDS: ACETAMINOPHEN 325 MG TAB PO PRN (20:47)
[2020-10-27] MEDS: TAMSULOSIN 0.4 MG CAP PO SCH (20:47)
[2020-10-27] MEDS: ATORVASTATIN 20 MG TAB PO SCH (20:47)
[2020-10-27] MEDS: LOSARTAN POTASSIUM 25 MG TAB PO SCH (20:47)
[2020-10-27] MEDS: FINASTERIDE 5 MG TAB PO SCH (20:47)
[2020-10-27] MEDS: TIOTROPIUM INHALER INH SCH (21:00)
[2020-10-28] MEDS: LEVALBUTEROL NEBS 1.25 MG/3 ML VIAL NEB SCH ×6 (00:05→23:00)
[2020-10-28] MEDS: IV SET AND CAP CHANGE INJ INJ SCH (05:52)
[2020-10-28] MEDS: PANTOPRAZOLE SODIUM TAB 40 MG PO SCH (05:53)
[2020-10-28] MEDS: LEVALBUTEROL NEBS 1.25 MG/3 ML VIAL NEB PRN (06:45)
[2020-10-28] MEDS ORDERED: ALBUTEROL SULFATE 2.5 MG/3 ML VIAL NEB ONE (07:02)
[2020-10-28] MEDS: BUDESONIDE NEBS 0.5 MG/2 ML INH NEB SCH ×2 (07:25→23:00)
[2020-10-28] MEDS: IPRATROPIUM BROMIDE NEBS 0.5 MG/2.5 ML VIAL NEB SCH ×3 (07:25→23:00)
--- NOTE | 2020-10-28 09:19 | RAD ---
EXAM: XR Chest, 1 View CLINICAL HISTORY: Difficulty breathing, Low O2 sat TECHNIQUE: Frontal view of the chest. COMPARISON: 10/27/2020 FINDINGS: Lungs: Left diaphragmatic elevation again noted with increased adjacent airspace consolidation. There is slight increased predominantly peripheral groundglass and superimposed consolidative infiltrates throughout the right lung. Pleural space: No pneumothorax. No pleural effusion. Heart: Stable marked cardiac enlargement. Mediastinum: No abnormality noted. Bones/joints: No osseous destruction or sclerosis noted. IMPRESSION: Mild worsening of covid pneumonia. Electronically signed by: Katerina Paez MD 10/28/2020 9:17 AM COSMETIC SALES ASSISTANT
[2020-10-28] MEDS: DEXAMETHASONE INJ 10 MG/ML VIAL IV SCH (09:29)
[2020-10-28] MEDS: BIFIDOBACTERIUM INFANTIS 4 MG CAP PO SCH (09:29)
[2020-10-28] MEDS: guaiFENesin ER TAB 600 MG TAB PO SCH ×2 (09:29→20:09)
[2020-10-28] MEDS ORDERED: VANCOMYCIN PER PHARMACY INJ SCH (11:30)
[2020-10-28] MEDS ORDERED: VANCOMYCIN HCL INJ 1,750 MG in SODIUM CHLORIDE 0.9% 500ML 500 ML IVPB ONE (11:30)
[2020-10-28] MEDS ORDERED: SODIUM CHL 0.9% 100ML MINI-BAG 100 ML IVPB ONE (11:41)
[2020-10-28] MEDS ORDERED: CEFEPIME 2 GM VIAL ONE (11:41)
[2020-10-28] MEDS: levoFLOXacin 750MG IV 750 MG in PREMIX BAG 1 BAG IVPB SCH (11:46)
[2020-10-28] MEDS: CEFEPIME 2 GM in SODIUM CHL 0.9% 100ML MINI-BAG 100 ML IVPB SCH ×2 (11:47→11:54)
[2020-10-28] MEDS: methylPREDNISolone SODIUM SUC 40 MG/ML VIAL IV SCH ×2 (13:21→17:22)
[2020-10-28] MEDS ORDERED: VANCOMYCIN HCL INJ 1,000 MG in SODIUM CHLORIDE 0.9% 250ML 250 ML IVPB SCH ×2 (13:30→21:00)
[2020-10-28] MEDS ORDERED: VANCOMYCIN HCL INJ 1,000 MG VIAL IVPB ONE (19:20)
[2020-10-28] MEDS ORDERED: SODIUM CHLORIDE 0.9% 250ML 250 ML ONE (19:22)
--- NOTE | 2020-10-28 19:34 | PN ---
SUPERVISING PHYSICIAN: Alirio Lloyd M.D. DATE: 10/28/20 SUBJECTIVE: The patient had a fairly good night until early this morning. Apparently his high flow system had an issue and they had to go back to a normal high flow nasal cannula. I rechecked his labs and ABGs which were pretty stable. I did discuss with him the fact that he has been here for 7 days and his COPD is fairly advanced. Will go ahead and treat him more aggressively with coverage with some more antibiotics to include vancomycin and Levaquin at least for the next 24 to 48 hours. He also has really wanted to be on Solu-Medrol, so we went ahead and started him on Solu-Medrol. He seems to be doing okay and he is doing well with the new high flow nasal cannula. Other than that he has had no further complaints. He does get quite winded when he gets up to go to the bathroom and tries to brush his teeth or anything, but he recuperates fairly easily. OBJECTIVE: GENERAL: The patient is resting comfortably now on the high flow nasal cannula system, not showing any distress. VITAL SIGNS: Temperature 98.6, pulse 107, blood pressure 107/68, respirations 20, satting 91 to 94% on high flow nasal cannula. HEART: Regular rate and rhythm. ABDOMEN: Soft, non-tender, positive bowel sounds. CHEST: A little diminished bilaterally but otherwise no rhonchi or wheezing noted. NEUROLOGIC: He is alert and oriented times three. LABORATORY STUDIES: CBC has been stable. Chemistries this morning are showing stable electrolytes, BUN 26, creatinine 0.69, calcium 8, magnesium 2.0. C reactive protein is down to 2.8. Coagulation studies show D-dimer normalized yesterday. Blood cultures remain negative after 5 days. RADIOLOGY: Repeat chest x-ray this morning showed mild worsening of COVID pneumonia. ASSESSMENT: 1. COVID-19 pneumonia. 2. Acute exacerbation of chronic obstructive pulmonary disease secondary to #1. 3. Sepsis secondary to #1. 4. Persistent hypoxic respiratory failure secondary to #1. 5. Hypertension. 6. Congestive heart failure with no signs of exacerbation with no current echocardiogram available with results pending. PLAN: Will continue with the Airvo system high flow nasal cannula. He has been doing well with that. Again, he did have some issues this morning when they took him off of it. I switched him off Rocephin over to Levaquin and vancomycin just to cover some more atypicals and maybe for Pseudomonas as well as MRSA. He did finish his full course of azithromycin and Remdesivir. I switched him over from Decadron to Solu-Medrol. He is on Xopenex breathing treatments and p.r.n. Albuterol. He is on anticoagulation DVT prophylaxis with Lovenox. He is on Align and Protonix. Will continue to work with him on aggressive bronchial hygiene to titrate his oxygen down to hopefully discharge home for further outpatient management within the next 2 to 3 days. I figure his normal baseline O2 saturations, although he says he is not O2 dependent at home, hang around the low 90s to high 80s. Until we can transition to outpatient management will continue to monitor and treat as needed. #[id number] [facility]
[2020-10-28] MEDS: ENOXAPARIN SODIUM 40 MG/0.4 ML SYG SUBCU SCH (20:09)
[2020-10-28] MEDS: FINASTERIDE 5 MG TAB PO SCH (20:09)
[2020-10-28] MEDS: ATORVASTATIN 20 MG TAB PO SCH (20:09)
[2020-10-28] MEDS: LOSARTAN POTASSIUM 25 MG TAB PO SCH (20:09)
[2020-10-28] MEDS: TAMSULOSIN 0.4 MG CAP PO SCH (20:09)
[2020-10-28] MEDS ORDERED: diphenhydrAMINE HCL 25 MG CAP PO PRN (22:10)
[2020-10-28] MEDS: TIOTROPIUM INHALER INH SCH (23:00)
[2020-10-29] MEDS: methylPREDNISolone SODIUM SUC 40 MG/ML VIAL IV SCH ×4 (00:13→17:46)
[2020-10-29] MEDS: LEVALBUTEROL NEBS 1.25 MG/3 ML VIAL NEB PRN (03:30)
[2020-10-29] MEDS: LEVALBUTEROL NEBS 1.25 MG/3 ML VIAL NEB SCH ×6 (04:10→21:10)
[2020-10-29] MEDS: PANTOPRAZOLE SODIUM TAB 40 MG PO SCH (06:04)
[2020-10-29] MEDS ORDERED: VANCOMYCIN HCL INJ 1,000 MG VIAL IVPB ONE (08:50)
[2020-10-29] MEDS ORDERED: SODIUM CHL 0.9% 250ML (AVIVA) 250 ML IVPB ONE (08:51)
[2020-10-29] MEDS: IPRATROPIUM BROMIDE NEBS 0.5 MG/2.5 ML VIAL NEB SCH ×2 (09:00→21:10)
[2020-10-29] MEDS: BUDESONIDE NEBS 0.5 MG/2 ML INH NEB SCH ×2 (09:00→21:10)
[2020-10-29] MEDS: guaiFENesin ER TAB 600 MG TAB PO SCH ×2 (09:20→20:16)
[2020-10-29] MEDS: BIFIDOBACTERIUM INFANTIS 4 MG CAP PO SCH (09:20)
[2020-10-29] MEDS: VANCOMYCIN HCL INJ 1,000 MG in SODIUM CHLORIDE 0.9% 250ML 250 ML IVPB SCH ×2 (09:21→20:17)
--- NOTE | 2020-10-29 10:11 | PN ---
SUPERVISING PHYSICIAN: Lane Richards MD DATE: 10/29/20 SUBJECTIVE: The patient states that his shortness of breath is not a whole lot different than it was yesterday. He still has an occasional productive cough. No other significant changes over the last 24 hours or so. He does desaturate with activity and does not want to use the urinal or bedside commode and wants to go to the bathroom, so he does desaturate every time he does that. OBJECTIVE: VITAL SIGNS: Blood pressure 144/77, heart rate 112, respiratory rate 42, temperature 97.8, oxygen saturation around 92% on high flow canula. GENERAL: Mr. Solis is a 75-year-old male patient in mild to moderate respiratory distress currently. NEUROLOGIC: The patient is alert and oriented. LUNGS: Diffuse wheezing and rhonchi bilaterally. CARDIOVASCULAR: Regular rate and rhythm. Normal S1, S2. ABDOMEN: Soft. Positive bowel sounds. EXTREMITIES: Lower extremities with no edema. Pulses 2+. Capillary refill is less than 2 seconds. LABORATORY: No labs for review today. RADIOLOGY: No x-rays for review today. ASSESSMENT: 1. COVID-19 pneumonitis. 2. Acute exacerbation of chronic obstructive pulmonary disease. 3. Hypoxic respiratory failure secondary to #1 and #2. 4. Hypertension. 5. Congestive heart failure with no exacerbation. PLAN: Continue high flow canula and wean as tolerated. We will continue to utilize empiric antibiotic therapies as well as IV Solu-Medrol. We will continue bronchodilator therapy as well. The patient is pretty much borderline at this time given the COVID-19 and COPD. At this point, he could either get worse or get better, so we will need to continue the current therapy and reevaluate labs and chest x-ray as needed. [facility][id number] [facility]
[2020-10-29] MEDS: levoFLOXacin 750MG IV 750 MG in PREMIX BAG 1 BAG IVPB SCH (11:26)
[2020-10-29] MEDS: TAMSULOSIN 0.4 MG CAP PO SCH (20:16)
[2020-10-29] MEDS: ATORVASTATIN 20 MG TAB PO SCH (20:16)
[2020-10-29] MEDS: FINASTERIDE 5 MG TAB PO SCH (20:16)
[2020-10-29] MEDS: LOSARTAN POTASSIUM 25 MG TAB PO SCH (20:16)
[2020-10-29] MEDS: ENOXAPARIN SODIUM 40 MG/0.4 ML SYG SUBCU SCH (20:16)
[2020-10-29] MEDS: TIOTROPIUM INHALER INH SCH (21:10)
[2020-10-30] MEDS: LEVALBUTEROL NEBS 1.25 MG/3 ML VIAL NEB SCH ×6 (01:00→20:55)
[2020-10-30] MEDS: LEVALBUTEROL NEBS 1.25 MG/3 ML VIAL NEB PRN (03:15)
[2020-10-30] MEDS: methylPREDNISolone SODIUM SUC 40 MG/ML VIAL IV SCH ×4 (06:42→18:35)
[2020-10-30] MEDS: PANTOPRAZOLE SODIUM TAB 40 MG PO SCH (06:42)
--- NOTE | 2020-10-30 06:52 | RAD ---
EXAM: XR Chest, 1 View CLINICAL HISTORY: covid-19/copd TECHNIQUE: Frontal view of the chest. COMPARISON: 10/28/2020 FINDINGS: Lungs: There is new complete opacification of the left hemithorax. There is stable groundglass and parenchymal consolidation throughout the right lung. Pleural space: No pneumothorax. No pleural effusion. Heart: Stable enlarged cardiac shadow. Mediastinum: No abnormality noted. Bones/joints: No osseous destruction or sclerosis noted. IMPRESSION: 1. There is now complete opacification of the left hemithorax. This could be related to mucous plugging with collapse, worsening pneumonia and increased pleural effusion. 2. Stable pneumonia in the right lung. Electronically signed by: Katerina Paez MD 10/30/2020 6:51 AM CHILD ABUSE WORKER
[2020-10-30] MEDS: BIFIDOBACTERIUM INFANTIS 4 MG CAP PO SCH (08:24)
[2020-10-30] MEDS: guaiFENesin ER TAB 600 MG TAB PO SCH ×2 (08:25→20:55)
[2020-10-30] MEDS ORDERED: ACETYLCYSTEIN 20 % 6,000 MG/30 ML VIAL NEB SCH (09:00)
[2020-10-30] MEDS: IPRATROPIUM BROMIDE NEBS 0.5 MG/2.5 ML VIAL NEB SCH ×2 (09:20→20:55)
[2020-10-30] MEDS: BUDESONIDE NEBS 0.5 MG/2 ML INH NEB SCH ×2 (09:20→20:55)
[2020-10-30] MEDS: ACETYLCYSTEIN 20 % 6,000 MG/30 ML VIAL NEB SCH ×4 (09:20→20:55)
--- NOTE | 2020-10-30 09:51 | PN ---
SUPERVISING PHYSICIAN: Lane Richards MD DATE: 10/30/20 SUBJECTIVE: The patient states he had a rough night. He states about 4 o'clock in the morning, he had an asthma attack. I was contacted by them at that time and they had to increase his oxygen. This morning, I reviewed his chest x-ray and he has complete white-out of the left lung. OBJECTIVE: VITAL SIGNS: Blood pressure 136/84, heart rate 114, respiratory rate 24, temperature 97.8, oxygen saturation around 93% on high flow at 60 liters and 85% FiO2. GENERAL: Mr. Solis is a 75-year-old male patient who is ill in appearance and in some respiratory distress at this time. NEUROLOGIC: The patient is alert. LUNGS: Diminished more on the left than the right with some rhonchi on the right and some expiratory wheezing. CARDIOVASCULAR: Tachycardic. Normal S1, S2. ABDOMEN: Soft. Positive bowel sounds. EXTREMITIES: Lower extremities with no edema. LABORATORY: White count 10.8, hemoglobin 11.4, hematocrit 34.2, platelet count 186. D-dimer 536, CRP less than 0.8. RADIOLOGY: As stated before, chest x-ray with near complete white-out of the left side. ASSESSMENT: 1. Acute hypoxemic respiratory failure secondary to COVID-19 pneumonitis. 2. COVID-19 pneumonitis. 3. Acute exacerbation of chronic obstructive pulmonary disease. 4. Hypertension. 5. Congestive heart failure. PLAN: Regarding the fact that the left side is with near complete white-out, I would imagine it is due to mucus plugging. We will start him on Mucinex nebulizer therapy as well as percussion and see if we can break some of that loose so that he can cough it up. He still does not want to be on BiPAP. We will address code status with him today as well. I will recheck his chest x-ray tomorrow as well as labs and see how he is doing. If he remains a full code, he is obviously a high risk for intubation. #[id number] [facility]
[2020-10-30] MEDS: VANCOMYCIN HCL INJ 1,000 MG in SODIUM CHLORIDE 0.9% 250ML 250 ML IVPB SCH ×3 (10:19→17:55)
[2020-10-30] MEDS: levoFLOXacin 750MG IV 750 MG in PREMIX BAG 1 BAG IVPB SCH (11:04)
[2020-10-30] MEDS: ENOXAPARIN SODIUM 40 MG/0.4 ML SYG SUBCU SCH (20:54)
[2020-10-30] MEDS: ATORVASTATIN 20 MG TAB PO SCH (20:54)
[2020-10-30] MEDS: TIOTROPIUM INHALER INH SCH (20:55)
[2020-10-30] MEDS: FINASTERIDE 5 MG TAB PO SCH (20:55)
[2020-10-30] MEDS: TAMSULOSIN 0.4 MG CAP PO SCH (20:55)
[2020-10-30] MEDS: LOSARTAN POTASSIUM 25 MG TAB PO SCH (20:55)
[2020-10-31] MEDS: VANCOMYCIN HCL INJ 1,000 MG in SODIUM CHLORIDE 0.9% 250ML 250 ML IVPB SCH ×3 (00:29→09:52)
[2020-10-31] MEDS: methylPREDNISolone SODIUM SUC 40 MG/ML VIAL IV SCH ×3 (00:29→11:47)
[2020-10-31] MEDS: LEVALBUTEROL NEBS 1.25 MG/3 ML VIAL NEB SCH ×4 (00:31→13:12)
[2020-10-31] MEDS: IV SET AND CAP CHANGE INJ INJ SCH (06:03)
[2020-10-31] MEDS: PANTOPRAZOLE SODIUM TAB 40 MG PO SCH (06:03)
--- NOTE | 2020-10-31 07:18 | RAD ---
EXAM: XR Chest, 1 View CLINICAL HISTORY: The patient is 75 years old and is Male; left lung collapse TECHNIQUE: Frontal view of the chest. COMPARISON: Chest x-ray 10/30/2020. FINDINGS: Lungs: There is complete opacification of the left hemithorax, similar to prior. Patchy interstitial and airspace opacities throughout the right lung, most prominent in the right lung base. Pleural space: Unremarkable. No pneumothorax. Heart: Unremarkable. Mediastinum: Unremarkable. Bones/joints: Unremarkable. IMPRESSION: 1. There is complete opacification of the left hemithorax, similar to prior. 2. Patchy interstitial and airspace opacities throughout the right lung, most prominent in the right lung base. Electronically signed by: Lane Castle MD 10/31/2020 7:16 AM [facility]
[2020-10-31] MEDS: BIFIDOBACTERIUM INFANTIS 4 MG CAP PO SCH (08:39)
[2020-10-31] MEDS: guaiFENesin ER TAB 600 MG TAB PO SCH (08:39)
[2020-10-31] MEDS: IPRATROPIUM BROMIDE NEBS 0.5 MG/2.5 ML VIAL NEB SCH (08:54)
[2020-10-31] MEDS: BUDESONIDE NEBS 0.5 MG/2 ML INH NEB SCH (08:54)
[2020-10-31] MEDS: ACETYLCYSTEIN 20 % 6,000 MG/30 ML VIAL NEB SCH ×2 (08:55→13:11)
[2020-10-31] MEDS ORDERED: VANCOMYCIN HCL INJ 1,250 MG in SODIUM CHLORIDE 0.9% 250ML 250 ML IVPB SCH (09:00)
[2020-10-31] MEDS ORDERED: VANCOMYCIN HCL INJ 500 MG VIAL ONE (09:30)
[2020-10-31] MEDS: levoFLOXacin 750MG IV 750 MG in PREMIX BAG 1 BAG IVPB SCH (11:47)
[2020-10-31] MEDS ORDERED: diltiaZEM DRIP 125 MG/25 ML VIAL IVPB ONE (12:16)
[2020-10-31] MEDS ORDERED: SODIUM CHL 0.9% 100ML MINI-BAG 100 ML IVPB ONE (12:17)
[2020-10-31] MEDS ORDERED: diltiaZEM DRIP 125 MG in SODIUM CHLORIDE 0.9% 100ML 100 ML IVPB SCH (12:30)
[2020-10-31 12:49] VITALS: BP 125/78; TEMP 97.5
[2020-10-31] MEDS ORDERED: ENOXAPARIN SODIUM 60 MG/0.6 ML SYG SUBCU ONE ×2 (14:37→14:45)
[2020-10-31] MEDS ORDERED: DIGOXIN INJ 0.5 MG/2 ML AMP IV ONE (14:40)
[2020-10-31] MEDS ORDERED: DIGOXIN INJ 0.5 MG/2 ML AMP ONE (14:46)
[2020-10-31 17:02] VITALS: O2SAT 98
[2020-11-01] MEDS ORDERED: ENOXAPARIN SODIUM 100 MG/ML SYG SUBCU SCH
--- NOTE | 2020-11-01 09:14 | DS ---
SUPERVISING PHYSICIAN: Lane Richards MD DISCHARGE DIAGNOSIS: 1. Acute hypoxic respiratory failure secondary to COVID-19 pneumonitis. 2. COVID-19 pneumonitis. 3. Atrial fibrillation with rapid ventricular response, presently on Cardizem drip. 4. Acute exacerbation of chronic obstructive pulmonary disease. 5. Hypertension. 6. Congestive heart failure. HISTORY OF PRESENT ILLNESS: This is a 75-year-old male patient who presented to the Emergency Room with a history of COVID pneumonia. He had had worsening shortness of breath. He was actually diagnosed on 10/18/20 and was given some azithromycin and steroids. He does have a significant history of chronic obstructive pulmonary disease and congestive heart failure. He takes frequent breathing treatments at home. He had gotten a single dose of the coronavirus vaccine. He had been watching his O2 levels at home and his O2 saturations dropped into the lower 80s. Previously, it had been in the low to mid 90s. His D-dimer was slightly elevated at 576. Lactic acid was 2.5. He was not O2 dependent, but he was showing respirations of 24 with a heart rate of 110. Other vital signs were stable. He was given breathing treatments and started on COVID medications including azithromycin, Rocephin, Remdesivir, Decadron and Lovenox. His chest x-ray showed patchy airspace opacities in the mid to lower right lung. HOSPITAL COURSE: The patient was continued on the routine COVID guidelines including the medications. He was placed on breathing treatments including albuterol and Pulmicort. His home medications were restarted and labs were continued per protocol. He had aggressive pulmonary hygiene. Over the next several days, his oxygen needs continued to increase. The patient felt he was doing better, but most likely is chronically short of breath due to his COPD. He continued to require high flow oxygen that increased to 15 liters per minute. We discussed changing him to BiPAP and the patient was insistent on continuing with the high flow oxygen. He was cautioned that his medications need to be regulated although he would not give up his albuterol inhaler at the bedside. He was frequently found in tripod position and was tachypneic even at rest. His breathing treatments were changed to nebulizer treatments. He was also given some Ativan due to his anxiety. He was started on Airvo high flow system and tolerated it well. His saturations remained in the low 90s. He did have an accelerated heart rate at one point and felt it was due to his breathing treatments, so they were changed to Xopenex. He did finish his Remdesivir infusions. His ABGs were checked several times and were fairly stable. He completed his azithromycin and Rocephin and was later switch to vancomycin and Levaquin. His chest x-ray yesterday actually showed complete opacification of the left hemithorax, most likely due to mucus plugging and his pneumonia was worsening. His vital signs did remain fairly stable and he continued on the Airvo high flow system. His clinical condition remained fairly stable although fairly critical, but today he went into atrial fibrillation with rapid ventricular response. He was started on a Cardizem drip and it was felt that due to his declining clinical status as well as opacification of his left lung and now being in atrial fibrillation with rapid ventricular response, the patient would benefit from being transferred to another facility for more aggressive care including pulmonology and cardiology. LABORATORY: WBCs have remained fairly stable between 7.1 and 10.8. His hemoglobin and hematocrit are stable at 11.7 and 32.8. He continues to have a left shift on his differential. His D-dimer went as high as 610 and today is 466. Electrolytes have been fairly stable. His BUN is 24, creatinine 0.6. Liver enzymes are within normal limits. C-reactive protein was as high as 6.3 and is now less than 0.8. MICROBIOLOGY: His final blood cultures showed no growth. Influenza A and B per PCR were both negative. RADIOLOGY: His initial chest x-ray showed 1) Elevation of left hemidiaphragm with low lung volume. 2) Patchy airspace opacities in the mid to lower right lung. 3) Diffuse interstitial opacity suggestive of interstitial edema. His chest/thorax CTA showed markedly motion degraded examination making evaluation of the pulmonary arteries significantly limited. No pulmonary embolus within the main pulmonary arteries. More distal elevation cannot be performed. Consider followup when the patient can tolerate. Patchy ground glass opacities throughout the bilateral lungs concerning for pneumonia. COVID-19 can give this appearance. Marked elevation in the left hemidiaphragm. His chest x-ray today shows 1) Complete opacification of the left hemithorax, similar to prior. 2) Patchy interstitial and airspace opacities throughout the right lung, most prominent in the right lung base. His echocardiogram showed 1) Hyperdynamic left ventricular and normal systolic function. Estimated ejection fraction 65- 70%. Cannot access all regional of the left ventricle due to limited visualization. 2) Normal right ventricular size and function. 3) Trace mitral valve regurgitation. 4) Normal mitral valve structure and function. 5) There is a trivial anterior pericardial effusion. DISCHARGE PLAN: The patient will be discharged to [facility] in [place]. He will be discharged in stable but fair condition. I have sent a list of his medications as well as the medications that he has received here in the hospital. Per request of Dr. Awad, cat sitter in [place], the patient was given 0.5 mg of digoxin IV as well as increased his Lovenox to 1 mg per kg b.i.d. Both of those medications were given. He will continue on the Cardizem drip. His vital signs are stable at this time. He is to followup with Dr. Peck after he is discharged from the hospital. DISCHARGE MEDICATIONS: 1. Methylprednisolone. 2. Budesonide inhalation. 3. Albuterol inhaler. 4. Spiriva. 5. Losartan. 6. Finasteride. 7. Atorvastatin. 8. Tamsulosin. 9. Albuterol 10. Align. 11. Lorazepam. 12. Atrovent. 13. Diltiazem drip. 14. Levaquin. 15. Lovenox. 16. Guaifenesin. 17. Methylprednisolone 40 mg IV q.6h. 18. Xopenex. #[id number] [facility]
== END 2020-10-31 15:30 | disposition short-term general hospital (02) | DRG 871 ==
LOC: ER 00:33 → OBSVTOIN 02:08 → MS 02:08
PROVIDERS: ADMIT Nurse Practitioner Family; ATTEND Nurse Practitioner Acute Care
PROC: XW033E5 Introduction of Remdesivir Anti-infective into Peripheral Vein, Percutaneous Approach, New Technology Group 5 (ICD-10-PCS; 2020-10-22)
PROC: 5A0955A Assistance with Respiratory Ventilation, Greater than 96 Consecutive Hours, High Flow/Velocity Cannula (ICD-10-PCS; 2020-10-22)
PROC: B32T1ZZ Computerized Tomography (CT Scan) of Left Pulmonary Artery using Low Osmolar Contrast (ICD-10-PCS; principal; 2020-10-23)
PROC: B32S1ZZ Computerized Tomography (CT Scan) of Right Pulmonary Artery using Low Osmolar Contrast (ICD-10-PCS; 2020-10-23)
DX: A41.89 Other specified sepsis (principal); U07.1 COVID-19; J12.82 Pneumonia due to coronavirus disease 2019; J96.01 Acute respiratory failure with hypoxia; J44.0 Chronic obstructive pulmonary disease with (acute) lower respiratory infection; J44.1 Chronic obstructive pulmonary disease with (acute) exacerbation; I48.91 Unspecified atrial fibrillation; I11.0 Hypertensive heart disease with heart failure; I50.9 Heart failure, unspecified; F41.9 Anxiety disorder, unspecified; Z79.51 Long term (current) use of inhaled steroids; Z88.0 Allergy status to penicillin; Z79.899 Other long term (current) drug therapy; Z87.891 Personal history of nicotine dependence